=== PATIENT | female | born 1990 | race Caucasian/White ===

== ENCOUNTER 2018-05-18 19:01 | Outpatient (REF) | payer SELFPAY ==
[2018-05-18 20:12] LABS: Abs Immature Grans 0.03 k/cumm (0.0-0.09); Absolute Basophil Count 0.05 k/cumm (0.0-0.2); Absolute Eosinophil Count 0.12 k/cumm (0.0-0.7); Absolute Lymphocyte Count 2.13 k/cumm (1.2-3.4); Absolute Monocyte Count 0.52 k/cumm (0.11-0.7); Absolute Neutrophil Count 4.53 k/cumm (1.2-6.7); Basophils % 0.7; Eosinophils % 1.6; HCT 46.6 % (36.0-46.0); HGB 15.5 g/dL (12.0-15.5); Immature Grans % 0.4; Lymphocytes % 28.9; Mean Corp. HGB Concentration 33.3 g/dL (32.0-36.0); Mean Corpuscular Hemoglobin 32.9 pg (27.0-33.0); Mean Corpuscular Volume 98.9 fL (80-95); Mean Platelet Volume 11.7 fL (8.0-11.0); Neutrophils % 61.4; Platelet Count 255 x1000/uL (130-400); RBC 4.71 m/cumm (4.00-5.20); RBC Distribution Width 13.2 % (11.7-14.6); White Blood Cell Count 7.38 k/cumm (4.4-10.8)
[2018-05-18 20:18] LABS: Mono Screening Negative (Negative)
[2018-05-18 20:51] LABS: ALT 38 U/L (12-78); AST 25 U/L (15-37); Albumin 3.4 g/dL (3.4-5.0); Alkaline Phosphatase 103 U/L (46-116); BUN 9 mg/dL (7-18); Bilirubin, Total 0.5 mg/dL (0.2-1.0); CREATININE 0.71 mg/dL (0.55-1.02); Calcium 8.9 mg/dL (8.5-10.1); Chloride 106 mmol/L (98-107); Glucose 110 mg/dL (70-100); Potassium 4.1 mmol/L (3.5-5.1); Sodium 142 mmol/L (136-145); Total Protein 6.6 g/dL (6.4-8.2)
== END 2018-05-18 19:21 ==
LOC: NCHCN 19:01
PROVIDERS: PCP Nurse Practitioner; Visit Provider Nurse Practitioner Family
DX: R10.12 Left upper quadrant pain (principal)
CPT/HCPCS: 80053; 85025; 86308

== ENCOUNTER 2018-06-07 11:58 | Emergency (ER) | payer SELFPAY ==
[2018-06-07 12:20] VITALS: BP 135/77; PULSE 89; RESP 16; TEMP 36.6; O2SAT 99
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
[2018-06-07] MEDS: Acetaminophen 500 MG TAB 1000 MG PO (13:55)
--- NOTE | 2018-06-07 14:13 | DI.RAD_ITS ---
SYMPTOMS/DIAGNOSIS: LATERAL MALLEOLUS INJURY LEFT ANKLE: Three views. No acute fracture or dislocation is identified. The soft tissues are unremarkable. No radiopaque foreign bodies are seen in the soft tissues. IMPRESSION: Negative examination.
== END 2018-06-07 15:00 | disposition home or self-care (01) ==
PROVIDERS: Emergency Provider Physician Assistant; PCP Nurse Practitioner Family
DX: S93.402A Sprain of unspecified ligament of left ankle, initial encounter (principal); W10.1XXA Fall (on)(from) sidewalk curb, initial encounter; X50.9XXA Other and unspecified overexertion or strenuous movements or postures, initial encounter
CPT/HCPCS: 29515; 99283; 73610; L3650

== ENCOUNTER 2019-01-02 10:51 | Emergency (ER) | payer SELFPAY ==
[2019-01-02 11:12] VITALS: BP 117/73; PULSE 102; RESP 18; TEMP 36.5; O2SAT 100
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
== END 2019-01-02 11:58 | disposition home or self-care (01) ==
LOC: ER 11:58
PROVIDERS: Emergency Provider Student in an Organized Health Care Education/Training Program; PCP Nurse Practitioner Family
DX: S80.00XA Contusion of unspecified knee, initial encounter (principal); S70.10XA Contusion of unspecified thigh, initial encounter; S40.029A Contusion of unspecified upper arm, initial encounter; Y04.0XXA Assault by unarmed brawl or fight, initial encounter; F10.10 Alcohol abuse, uncomplicated
CPT/HCPCS: 99282

== ENCOUNTER 2019-03-03 10:40 | Outpatient (CLI) | payer MEDICAID, SELFPAY ==
[2019-03-03 11:36] LABS: Abs Immature Grans 0.03 k/cumm (0.0-0.09); Absolute Basophil Count 0.02 k/cumm (0.0-0.2); Absolute Eosinophil Count 0.07 k/cumm (0.0-0.7); Absolute Lymphocyte Count 1.37 k/cumm (1.2-3.4); Absolute Neutrophil Count 5.08 k/cumm (1.2-6.7); Basophils % 0.3; HCT 39.9 % (36.0-46.0); HGB 13.8 g/dL (12.0-15.5); Immature Grans % 0.4; Lymphocytes % 19.9; Mean Corp. HGB Concentration 34.6 g/dL (32.0-36.0); Mean Corpuscular Hemoglobin 33.5 pg (27.0-33.0); Mean Corpuscular Volume 96.8 fL (80-95); Mean Platelet Volume 11.2 fL (8.0-11.0); Monocytes % 4.4; Platelet Count 215 x1000/uL (130-400); RBC 4.12 m/cumm (4.00-5.20); RBC Distribution Width 12.1 % (11.7-14.6); White Blood Cell Count 6.87 k/cumm (4.4-10.8)
[2019-03-03 12:30] LABS: TSH (W/Ref FT4) 3.05 uIU/mL (0.36-3.74)
[2019-03-04 09:21] LABS: Hepatitis B Surface Ag Negative (NEGAT)
[2019-03-04 09:45] LABS: HIV-1/2 Ag & Ab Screen Negative (NEGAT); Hepatitis C Ab w Rflx HCV PCR Negative (NEGAT)
[2019-03-04 10:50] LABS: Varicella IgG Antibody Positive
[2019-03-04 10:53] LABS: Syphilis Serology (RPR) Negative (Negative)
[2019-03-04 10:55] LABS: Rubella IgG Ab (UVM) Positive
== END 2019-03-03 11:00 ==
PROVIDERS: PCP Nurse Practitioner Family; Visit Provider Advanced Practice Midwife
DX: Z34.91 Encounter for supervision of normal pregnancy, unspecified, first trimester (principal); Z11.59 Encounter for screening for other viral diseases; Z01.84 Encounter for antibody response examination; Z11.4 Encounter for screening for human immunodeficiency virus [HIV]
CPT/HCPCS: 36415; 80055; 86787; 86803; 86850; 86900; 86901; 87340; 87389; 84443; 86592; 86762

== ENCOUNTER 2019-03-03 13:38 | Outpatient (REF) | payer MEDICAID, SELFPAY ==
[2019-03-04 14:18] LABS: Chlamydia Result Negative; GC Result Negative
== END 2019-03-03 13:58 ==
LOC: LBN 13:38
PROVIDERS: PCP Nurse Practitioner Family; Visit Provider Advanced Practice Midwife
DX: Z34.90 Encounter for supervision of normal pregnancy, unspecified, unspecified trimester (principal); Z11.3 Encounter for screening for infections with a predominantly sexual mode of transmission
CPT/HCPCS: 80307; 87491; 87591; 87086; 87480; 87510; 87660

== ENCOUNTER 2019-03-21 11:26 | Outpatient (CLI) | payer MEDICAID, SELFPAY ==
[2019-03-21 14:52] LABS: Kit/Specimen SENT
== END 2019-03-21 11:46 ==
PROVIDERS: PCP Nurse Practitioner Family; Visit Provider Advanced Practice Midwife
DX: Z34.01 Encounter for supervision of normal first pregnancy, first trimester (principal)
CPT/HCPCS: 36415

== ENCOUNTER 2019-05-02 00:31 | Outpatient (CLI) | payer MEDICAID, SELFPAY ==
--- NOTE | 2019-05-02 09:57 | DI.US_ITS ---
EXAM: US OB 2-3 TRIMESTER CLINICAL HISTORY: Z34.90 SUPERVISION NORMAL . TECHNIQUE: Ultrasound performed using standard protocol. FINDINGS: Fetus demonstrated in varied position. The amniotic fluid index is normal. The measurements ar e consistent with a gestational age of 17 weeks 2 days. A fundal and posterior placenta is identifie d. The spine and head are poorly seen. Patient is to return on 05/11/2019 for completion of the exami nation. IMPRESSION: Please see the ultrasound worksheet for the complete results of this study.
== END 2019-05-02 00:51 ==
PROVIDERS: PCP Nurse Practitioner Family; Visit Provider Advanced Practice Midwife
DX: Z34.92 Encounter for supervision of normal pregnancy, unspecified, second trimester (principal)
CPT/HCPCS: 76805

== ENCOUNTER 2019-05-11 01:10 | Outpatient (CLI) | payer MEDICAID, SELFPAY ==
--- NOTE | 2019-05-11 15:32 | DI.US_ITS ---
EXAM: US OB F/U FACIAL/LVOT/RVOT CLINICAL HISTORY: FU HEART TO COMPLETE SURVEY. TECHNIQUE: Ultrasound performed using standard protocol. COMPARISON: No exams were available for comparison FINDINGS: Second trimester repeat scanning was performed due to incomplete evaluation of spine. On today's exam ination, again the spinal structures are non visualized due to position. An additional attempt at scanning spine may be obtained if desired.
== END 2019-05-11 01:30 ==
PROVIDERS: PCP Nurse Practitioner Family; Visit Provider Advanced Practice Midwife
DX: Z34.92 Encounter for supervision of normal pregnancy, unspecified, second trimester (principal); Z36.2 Encounter for other antenatal screening follow-up
CPT/HCPCS: 76815

== ENCOUNTER 2019-05-23 09:59 | Outpatient (CLI) | payer MEDICAID, SELFPAY ==
[2019-05-23 10:33] LABS: Glucose,1 Hr (Glucola) 113 mg/dL (80-140)
== END 2019-05-23 10:19 ==
PROVIDERS: PCP Nurse Practitioner Family; Visit Provider Advanced Practice Midwife
DX: Z34.92 Encounter for supervision of normal pregnancy, unspecified, second trimester (principal)
CPT/HCPCS: 36415; 82950

== ENCOUNTER 2019-07-05 16:12 | Outpatient (REF) | payer MEDICAID, SELFPAY | END 2019-07-05 16:32 | LOC: LBO 16:12 | PROVIDERS: PCP Nurse Practitioner Family; Visit Provider Advanced Practice Midwife | DX: Z87.440 Personal history of urinary (tract) infections (principal); R82.90 Unspecified abnormal findings in urine | CPT/HCPCS: 87086 ==

== ENCOUNTER 2019-07-19 08:36 | Outpatient (CLI) | payer MEDICAID, SELFPAY ==
[2019-07-19 09:47] LABS: HCT 36.3 % (36.0-46.0); HGB 12.2 g/dL (12.0-15.5); Mean Corp. HGB Concentration 33.6 g/dL (32.0-36.0); Mean Corpuscular Hemoglobin 32.5 pg (27.0-33.0); Mean Corpuscular Volume 96.8 fL (80-95); Mean Platelet Volume 10.6 fL (8.0-11.0); Platelet Count 227 x1000/uL (130-400); RBC 3.75 m/cumm (4.00-5.20); RBC Distribution Width 12.8 % (11.7-14.6)
[2019-07-19 10:33] LABS: Glucose,1 Hr (Glucola) 139 mg/dL (80-140)
== END 2019-07-19 08:56 ==
PROVIDERS: PCP Nurse Practitioner Family; Visit Provider Advanced Practice Midwife
DX: Z34.93 Encounter for supervision of normal pregnancy, unspecified, third trimester (principal)
CPT/HCPCS: 36415; 82950; 85027

== ENCOUNTER 2019-07-25 08:51 | Outpatient (CLI) | payer MEDICAID, SELFPAY ==
[2019-07-25 11:09] LABS: Glucose 1 Hour 181 mg/dL
[2019-07-25 12:57] LABS: Glucose 3 Hour 59 mg/dL
== END 2019-07-25 09:11 ==
PROVIDERS: Advanced Practice Midwife; PCP Nurse Practitioner Family; Visit Provider Advanced Practice Midwife
DX: Z34.93 Encounter for supervision of normal pregnancy, unspecified, third trimester (principal)
CPT/HCPCS: 36410; 82951

== ENCOUNTER 2019-08-04 10:06 | Outpatient (CLI) | payer MEDICAID, SELFPAY ==
--- NOTE | 2019-08-04 16:00 | NS.NUTBLAN_ITS ---
DESCRIPTION: Halie Zarate presents for nutrition consult for management of gestational diabetes. She has a strong family history in mom and dad. This is her first with a net 0 weight gain after weight loss in early . FOOD: Halie has oatmeal or muffin for breakfast; brings snacks to eat of oatbar or gummy snacks; sometimes eats a sandwich at work ([employer]); often has cereal and milk for supper. Often drinks a pint of milk daily. States she often forgets her vitamin. MONITORING: She has been monitoring her blood sugars as directed fasting and one hour after she eats. States all of her numbers have been less than 100. She did not bring her glucometer with her. PHYSICAL ACTIVITY: She is active at work only. INTERVENTION: Reviewed gestational food guide for carbohydrate identification, portions, distribution. Given that she is monitoring her blood sugars with normal results, encouraged her to continue what she is doing with an emphasis on assuring some vegetables and complete protein in at least 2 meals a day. Reviewed basic guidlines for gestational diabetes as well as risk factors. PLAN: She will call with blood sugars out of range. She will continue to follow the protocol being mindful of carbohydrate quality and quantity.
== END 2019-08-04 10:26 ==
PROVIDERS: PCP Nurse Practitioner Family; Visit Provider Dietitian, Registered
DX: O24.419 Gestational diabetes mellitus in pregnancy, unspecified control (principal); Z83.3 Family history of diabetes mellitus; Z71.3 Dietary counseling and surveillance
CPT/HCPCS: 97802

== ENCOUNTER 2019-08-29 00:39 | Outpatient (CLI) | payer MEDICAID, SELFPAY ==
--- NOTE | 2019-08-29 07:03 | DI.US_ITS ---
EXAM: US OB ORALIA WEIGHT CLINICAL HISTORY: size greater than dates, gestational diabetes, TECHNIQUE: Ultrasound performed using standard protocol. COMPARISON: US OB F/U FACIAL/LVOT/RVOT from 05/11/2019 FINDINGS: Ob ultrasound was performed utilizing limited 3rd trimester protocol. biometry is consistent w ith gestational age of 35 weeks 0 days and EDC of 10/03/2019. Estimated weight is 2511 grams which is at the 63rd percentile for predicted gestational age. Placenta is posterior with no evidence of placenta previa. There is visually a normal quantity of am niotic fluid and the ORALIA is 20. Fetus is in cephalic presentation, cardiac activity noted at a rate of 133 BPM.
== END 2019-08-29 00:59 ==
PROVIDERS: PCP Nurse Practitioner Family; Visit Provider Advanced Practice Midwife
DX: O24.419 Gestational diabetes mellitus in pregnancy, unspecified control (principal); O26.843 Uterine size-date discrepancy, third trimester
CPT/HCPCS: 76816

== ENCOUNTER 2019-09-10 18:14 | Inpatient (IN) | payer MEDICAID, SELFPAY ==
[2019-09-10 19:23] LABS: HCT 36.8 % (36.0-46.0); HGB 12.7 g/dL (12.0-15.5); Mean Corp. HGB Concentration 34.5 g/dL (32.0-36.0); Mean Corpuscular Hemoglobin 32.9 pg (27.0-33.0); Mean Corpuscular Volume 95.3 fL (80-95); Mean Platelet Volume 10.8 fL (8.0-11.0); Platelet Count 233 x1000/uL (130-400); RBC 3.86 m/cumm (4.00-5.20); RBC Distribution Width 12.5 % (11.7-14.6); White Blood Cell Count 14.53 k/cumm (4.4-10.8)
[2019-09-10] MEDS: Penicillin G POT. 5,000,000 UNITS in Normal Saline 100 ML 200 UNITS IVPB (19:40)
[2019-09-10] MEDS: Citalopram 20 MG TAB PO (21:47)
[2019-09-11] MEDS: Acetaminophen 325 MG TAB 650 MG PO (15:34)
[2019-09-11] MEDS: Citalopram 20 MG TAB PO (22:11)
[2019-09-12 06:42] LABS: HCT 37.7 % (36.0-46.0); HGB 12.6 g/dL (12.0-15.5); Mean Corp. HGB Concentration 33.4 g/dL (32.0-36.0); Mean Corpuscular Hemoglobin 32.4 pg (27.0-33.0); Mean Corpuscular Volume 96.9 fL (80-95); Mean Platelet Volume 10.3 fL (8.0-11.0); Platelet Count 233 x1000/uL (130-400); RBC 3.89 m/cumm (4.00-5.20); RBC Distribution Width 12.8 % (11.7-14.6); White Blood Cell Count 11.25 k/cumm (4.4-10.8)
== END 2019-09-13 12:30 | disposition home or self-care (01) | DRG 807 ==
PROVIDERS: Admitting Provider Advanced Practice Midwife; PCP Nurse Practitioner Family; Visit Provider Advanced Practice Midwife
DX: O60.14X0 Preterm labor third trimester with preterm delivery third trimester, not applicable or unspecified (principal); Z37.0 Single live birth; Z3A.35 35 weeks gestation of pregnancy; O70.0 First degree perineal laceration during delivery; O24.420 Gestational diabetes mellitus in childbirth, diet controlled; O99.824 Streptococcus B carrier state complicating childbirth; O99.344 Other mental disorders complicating childbirth; O99.334 Smoking (tobacco) complicating childbirth; F41.9 Anxiety disorder, unspecified; Z79.82 Long term (current) use of aspirin; F17.210 Nicotine dependence, cigarettes, uncomplicated
CPT/HCPCS: 36415; 85027; 86850; 86900; 86901; 59025; 87081; G0378; J2540; J3490

== ENCOUNTER 2020-03-03 13:45 | Emergency (ER) | payer MEDICAID, SELFPAY ==
[2020-03-03 14:14] VITALS: BP 120/67; PULSE 87; RESP 16; TEMP 36.8; O2SAT 98
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
[2020-03-03] MEDS: Ibuprofen 400 MG TAB PO (16:16)
[2020-03-03] MEDS: Cephalexin 500 MG CAP PO (16:16)
[2020-03-03 16:50] VITALS: BP 116/80; PULSE 80; RESP 16; TEMP 36.8; O2SAT 98
== END 2020-03-03 16:54 | disposition home or self-care (01) ==
PROVIDERS: Emergency Provider Registered Nurse Emergency; PCP Nurse Practitioner
DX: L02.31 Cutaneous abscess of buttock (principal)
CPT/HCPCS: 10060; 87070; 87205

== ENCOUNTER 2020-05-21 22:39 | Outpatient (REF) | payer MEDICAID, SELFPAY ==
[2020-05-21 19:54] LABS: Hemoglobin A1C 5.5 % (<5.7)
== END 2020-05-21 22:59 ==
LOC: NCHCN 22:39
PROVIDERS: PCP Nurse Practitioner; Visit Provider Family Medicine
DX: Z86.32 Personal history of gestational diabetes (principal)
CPT/HCPCS: 83036

== ENCOUNTER 2020-08-13 18:09 | Outpatient (REF) | payer MEDICAID, SELFPAY ==
[2020-08-14 21:31] LABS: COVID-19 RT-PCR Result NEGATIVE (Negative)
== END 2020-08-13 18:29 ==
LOC: NCHCN 18:09
PROVIDERS: PCP Nurse Practitioner; Visit Provider Nurse Practitioner Family
DX: R53.83 Other fatigue (principal)
CPT/HCPCS: U0003

== ENCOUNTER 2020-10-03 11:11 | Outpatient (REF) | payer MEDICAID, SELFPAY ==
--- NOTE | 2020-10-03 09:45 | PAPFT_PTH ---
PATIENT: Halie Zarate LOC: [facility] U#:[id number] AGE/SX: 30/F ROOM: RE10/03/[address]: Michaela Simms : 1990 BED: DIS: 10/03/2020 SPEC #: [id number] RECD: 10/03/20 18:03 STATUS: SWATI REShant #: [id number] KAIT: 10/03/20 09:[address]: Michaela Simms DEPT: [facility] Cytology RECD BY: Tiffany Ag Tissues: 1 - CX/ENDOCX FOR PAP SMEARS Procedures: PAP THIN PREP/UVM Screening Comments: [id number]
== END 2020-10-03 11:12 | disposition home or self-care (01) ==
LOC: NCHCN 11:11
PROVIDERS: PCP Nurse Practitioner; Visit Provider Nurse Practitioner
DX: Z12.4 Encounter for screening for malignant neoplasm of cervix (principal)
CPT/HCPCS: 88142

== ENCOUNTER 2021-04-09 15:18 | Outpatient (REF) | payer MEDICAID, SELFPAY ==
[2021-04-10 13:56] LABS: COVID-19 RT-PCR UVMMC Result Negative (Negative)
== END 2021-04-09 15:19 | disposition home or self-care (01) ==
LOC: LBN 15:18
PROVIDERS: PCP Nurse Practitioner; Visit Provider Family Medicine
DX: Z20.822 Contact with and (suspected) exposure to COVID-19 (principal); J06.9 Acute upper respiratory infection, unspecified
CPT/HCPCS: U0003

== ENCOUNTER 2021-04-12 19:54 | Outpatient (REF) | payer MEDICAID, SELFPAY ==
[2021-04-20 15:23] LABS: Chlamydia Result Negative (Negative); GC Result Negative (Negative)
== END 2021-04-12 19:55 | disposition home or self-care (01) ==
LOC: NCHCN 19:54
PROVIDERS: PCP Nurse Practitioner; Visit Provider Family Medicine
DX: N89.8 Other specified noninflammatory disorders of vagina (principal)
CPT/HCPCS: 87491; 87591

== ENCOUNTER 2021-05-25 10:37 | Outpatient (REF) | payer MEDICAID, SELFPAY ==
[2021-05-27 12:56] LABS: COVID-19 RT-PCR UVMMC Result Negative (Negative)
== END 2021-05-25 10:38 | disposition home or self-care (01) ==
LOC: LBN 10:37
PROVIDERS: PCP Nurse Practitioner; Visit Provider Physician Assistant Medical
DX: Z20.822 Contact with and (suspected) exposure to COVID-19 (principal); J06.9 Acute upper respiratory infection, unspecified
CPT/HCPCS: U0003

== ENCOUNTER 2021-06-21 14:23 | Outpatient (REF) | payer MEDICAID, SELFPAY ==
--- OUTSIDE RECORDS SUMMARY | 2021-06-21 14:28 | XMS_ITS ---
:1990 Author Care Team Providers Name Role Phone DR. CORINE CHENG Primary Care Provider [phone] DR. CORINE CHENG Referring Provider [phone] Allergies Code Code System Name Reaction Severity Status Onset NKDA ? Medications Name Status Start Date Stop Date ? ? ammonium lactate 12 % topical cream Active ? Not available Apply 1 application twice a day by topical route as directed. citalopram 20 mg tablet Active ? Not avai lable Take 1 tablet every day by oral route. [place] 952 mg-1,347 mg topical powder in packet Active ? Not available Apply 1 packet twice a day by topical route. Proventil HFA 90 mcg/actuation aerosol inhaler Active ? Not available Inhale 2 puffs every 4 hours by inhalation route as needed. Problems Name Status Onset Date Source ? Body Mass Index 30+ - Obesity Active 03/08/2020 ? Anxiety Active 03/08/2020 ? Tobacco User Active 03/08/2020 ? Migraine Active 03/08/2020 ? Gastroesophageal Reflux Disease Active 03/08/2020 ? Gestational Diabetes Mellitus Active 03/08/2020 ? [place] - Lesion Active 03/08/2020 ? Abnormal Cervical Papanicolaou Smear Active 03/08/2020 ? Pain in Left Knee Active 03/08/2020 ? Procedures None recorded. Results Lab Results None recorded. Past Encounters 03/26/2020 [facility] Fuentes: [address] [place] [phone], Ph. 03/13/2020 Ingrowing Great Toenail [facility] Fuentes: [address] [place] [phone], Ph. 03/12/2020 Fissure in Skin Spencer Fuentes: [address] [place] [phone], Ph. Social History Tobacco Smoking Status Heavy Tobacco Smoker (1 pack per day) Vaccine List None recorded. Plan of Care Patient Instructions Perform soaks and dressings at home . Return PRN Use soaks as recommended Reminders Provider Appointments None recorded. ? ? Lab None recorded. ? ? Referral None recorded. ? ? Procedures None recorded. ? ? Surgeries None recorded. ? ? Imaging None recorded. ? ? Vitals 03/26/2020 01:00PM FOLLOW UP Height Weight BMI Blood Pressure 167.64 cm 104.33 kg 37.1 kg/m2 106/56 mm[Hg] 03/13/2020 02:15PM ACUTE Height Weight BMI Blood Pressure 167.64 cm 104.33 kg 37.1 kg/m2 122/60 mm[Hg] 03/12/2020 03:00PM NEW PATIENT Height Weight BMI Blood Pressure 167.64 cm 104.33 kg 37.1 kg/m2 122/60 mm[Hg]
[2021-06-22 15:10] LABS: COVID-19 RT-PCR UVMMC Result Negative (Negative)
--- OUTSIDE RECORDS SUMMARY | 2021-07-03 17:29 | XMS_ITS ---
:1990 Author Care Team Providers Name Role Phone DR. CORINE CHENG Primary Care Provider [phone] DR. CORINE CHENG Referring Provider [phone] Allergies Code Code System Name Reaction Severity [...] ? Gestational Diabetes Mellitus Active 03/08/2020 ? [place] - Lesion Active 03/08/2020 ? Abnormal Cervical Papanicolaou Smear Active 03/08/2020 ? Pain in Left Knee Active 03/08/2020 ? Procedures None recorded. Results Lab Results None recorded. Past Encounters 03/26/2020 [facility] Fuentes: [address] [place] [phone], Ph. 03/13/2020 Ingrowing Great Toenail [facility] Fuentes: [address] [place] [phone], Ph. 03/12/2020 Fissure in Skin Spencer Fuentes: [address] [place] [phone], Ph. Social History Tobacco Smoking Status Heavy [...]
== END 2021-06-21 14:24 | disposition home or self-care (01) ==
LOC: LBN 14:23
PROVIDERS: PCP Nurse Practitioner; Visit Provider Physician Assistant Medical
DX: Z20.822 Contact with and (suspected) exposure to COVID-19 (principal); J06.9 Acute upper respiratory infection, unspecified
CPT/HCPCS: U0003

== ENCOUNTER 2021-07-09 15:23 | Outpatient (REF) | payer MEDICAID, SELFPAY ==
[2021-07-09 16:44] LABS: Anion Gap 10.2 mmol/L (3-11); BUN 12 mg/dL (7-18); CO2 23.8 mmol/L (21.0-32.0); CREATININE 0.8 mg/dL (0.55-1.02); Chloride 105 mmol/L (98-107); Glucose 118 mg/dL (74-106); Potassium 3.6 mmol/L (3.5-5.1); Sodium 139 mmol/L (136-145)
== END 2021-07-09 15:24 | disposition home or self-care (01) ==
LOC: NCHCN 15:23
PROVIDERS: PCP Nurse Practitioner; Visit Provider Nurse Practitioner
DX: R10.84 Generalized abdominal pain (principal)
CPT/HCPCS: 80048

== ENCOUNTER 2021-08-07 00:11 | Outpatient (CLI) | payer MEDICAID, SELFPAY ==
--- NOTE | 2021-08-07 10:00 | DI.CT_ITS ---
Exam(s) CT ABDOMEN PELVIS W EXAM: CT ABDOMEN PELVIS W CLINICAL HISTORY: ABDOMINAL PAIN, R10.9. TECHNIQUE: Imaging Protocol: Axial computed tomography images with coronal and sagittal reformatted images were created and reviewed CONTRAST MATERIAL: Intravenous: Omnipaque 100cc Oral: Yes. COMPARISON: No exams were available for comparison FINDINGS: VISUALIZED LUNG BASES: No nodules nor pleural effusions evident. ABDOMEN: There is no ascites. LIVER: There are no focal hepatic lesions evident. No dilatation of intrahepatic ducts. GALLBLADDER/BILIARY: The gallbladder is surgically absent. CBD is not dilated. PANCREAS: No evidence of pancreatic mass nor dilatation of the pancreatic duct. SPLEEN: Spleen is not enlarged. No obvious intrasplenic lesions. Splenic and portal veins are paten t. ADRENALS: There are no significant adrenal masses. KIDNEYS:No cysts evident. No solid renal masses. No calculi nor hydronephrosis.. ABDOMINAL AORTA: Abdominal aorta is not enlarged. LYMPH NODES:There is no retroperitoneal nor paraaortic adenopathy. ABDOMINAL WALL: Anterior abdominal wall fat containing umbilical hernia. GI: There is no evidence of bowel obstruction, free air, nor abscess. PELVIS: GI: No evidence of appendicitis.No evidence of sigmoid diverticulitis. LYMPH NODES: There is no intrapelvic nor inguinal adenopathy. REPRODUCTIVE: Uterus appears unremarkable. Left adnexa unremarkable. Right ovary is slightly larger t valdez the left and measures 3.3 by 2.7 cm by 4.5 cm and contains small cysts. URINARY BLADDER: No calculi nor obvious masses evident OSSEOUS: No significant osseous lesions. IMPRESSION: 1. The gallbladder surgically absent. The biliary tree is not dilated. 2. Slight asymmetry in the appearance of the ovaries, right ovary larger than the left although still upper normal limits for this age group. The right ovary contains multiple small follicular cysts. Th ere are no extraovarian adnexal masses and no free fluid in the pelvis. 3. There is anterior abdominal wall fat only containing umbilical hernia. There is no bowel obstructi on. 4. There is no ascites. RADIATION DOSE DELIVERED: 1,139.74mGy.cm Total DLP DATA REPOSITORY: All CT scans at this facility are submitted to the National Radiology Data Registry (NRDR) Dose Index Registry (DIR) with the [employer] (ACR). RADIATION OPTIMIZATION: All CT scans at this facility use at least one of these dose optimization te chniques: automated exposure control; mA and/or kV adjustment per patient size (includes targeted exa ms where dose is matched to clinical indication); or iterative reconstruction.
[2021-08-07] MEDS: Omnipaque 350 MG/ML 100 ML BTL IJ (14:10)
[2021-08-07] MEDS: Normal Saline Flush 10 ML SYR IVP (14:16)
== END 2021-08-07 00:31 ==
PROVIDERS: PCP Nurse Practitioner; Visit Provider Nurse Practitioner
DX: R10.9 Unspecified abdominal pain (principal); N83.01 Follicular cyst of right ovary; K42.9 Umbilical hernia without obstruction or gangrene
CPT/HCPCS: 74177; J3490

== ENCOUNTER 2021-10-23 10:19 | Emergency (ER) | payer MEDICAID, SELFPAY ==
[2021-10-23 10:26] VITALS: BP 126/73; PULSE 88; RESP 17; TEMP 36.8; O2SAT 100
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
[2021-10-23] MEDS: Lactated Ringers 1,000 ML 1000 ML IV (10:55)
[2021-10-23 10:59] LABS: Abs Immature Grans 0.01 10^3/uL (0.0-0.06); Absolute Basophil Count 0.05 10^3/uL (0.0-0.2); Absolute Eosinophil Count 0.07 10^3/uL (0.0-0.7); Absolute Lymphocyte Count 1.74 10^3/uL (1.2-3.4); Absolute Monocyte Count 0.46 10^3/uL (0.1-0.8); Eosinophils % 1.4; HCT 43.1 % (36.0-46.0); HGB 14.6 g/dL (11.2-15.7); Immature Grans % 0.2; MCH 30.4 pg (27.0-33.0); MCHC 33.9 % (32.0-36.0); MCV 89.8 fL (80-95); MPV 10.3 fL (8.0-11.0); Monocytes % 9.5; Neutrophils % 51.9; Nucleated RBC 0 %; Platelet Count 242 10^3/uL (130-400); RDW 11.9 % (11.7-14.6); RDW-SD 39.2 fL; WBC 4.83 10^3/uL (4.4-10.8)
[2021-10-23 11:10] LABS: Lipase 57 U/L (73-393)
[2021-10-23 11:15] LABS: ALT 60 U/L (14-59); AST 45 U/L (15-37); Albumin 4.3 g/dL (3.4-5.0); Alkaline Phosphatase 105 U/L (46-116); Anion Gap 9.6 mmol/L (3-11); BUN 9 mg/dL (7-18); CO2 25.4 mmol/L (21.0-32.0); CREATININE 0.8 mg/dL (0.55-1.02); Calcium 9.1 mg/dL (8.5-10.1); Chloride 104 mmol/L (98-107); Glucose 107 mg/dL (74-106); Magnesium 2.2 mg/dL (1.8-2.4); Potassium 3.7 mmol/L (3.5-5.1); Sodium 139 mmol/L (136-145); Total Protein 8.1 g/dL (6.4-8.2)
[2021-10-23] MEDS: Ondansetron 4 MG/2 ML VIAL IVP (11:17)
[2021-10-23 11:23] LABS: HCG Qual (Serum) Negative
[2021-10-23 11:41] LABS: Bilirubin Negative (Negative); Blood Negative (Negative); Clarity Clear (Clear); Glucose Negative (Negative); Ketones Negative (Negative); Leukocyte Esterase Negative (Negative); Nitrite Negative (Negative); Urobilinogen 0.2 EU/dL (Up TO 0.2); pH 6.5 (5-8)
--- NOTE | 2021-10-23 12:22 | NUR.NOTE ---
Nursing Note: Pt ambulatory to [facility], stool sample obtained & sent to lab, possible contanimation w/urine, outpt lab slip & supplies given to obtain stool sample if diarrhea cont. at home. Pt verbalized understanding instructions.
[2021-10-23 13:38] LABS: C Diff PCR Negative (Negative)
[2021-10-24 11:28] LABS: Campylobacter PCR Negative (Negative); Salmonella PCR Negative (Negative); Shiga Toxin PCR Negative (Negative); Shigella/Enteroinvasive Ecoli Negative (Negative)
== END 2021-10-23 12:27 | disposition home or self-care (01) ==
PROVIDERS: Emergency Provider Physician Assistant; PCP Nurse Practitioner
DX: R19.7 Diarrhea, unspecified (principal); R11.0 Nausea
CPT/HCPCS: 36415; 80053; 83690; 87493; 87505; 96361; 96374; 99284; 81003; 83735; 84703; 85025; 99283; J2405

== ENCOUNTER 2021-10-23 14:47 | Outpatient (REF) | payer MEDICAID, SELFPAY ==
[2021-10-23 19:31] LABS: C Diff PCR Negative (Negative)
== END 2021-10-23 14:48 | disposition home or self-care (01) ==
LOC: LBN 14:47
PROVIDERS: PCP Nurse Practitioner; Visit Provider Nurse Practitioner
DX: R19.7 Diarrhea, unspecified (principal)
CPT/HCPCS: 87493; 87505

== ENCOUNTER 2021-11-28 10:11 | Outpatient (REF) | payer MEDICAID, SELFPAY ==
[2021-11-28 16:42] LABS: ALT 24 U/L (14-59); AST 18 U/L (15-37); Albumin 3.9 g/dL (3.4-5.0); Alkaline Phosphatase 94 U/L (46-116); Anion Gap 6.2 mmol/L (3-11); BUN 10 mg/dL (7-18); Bilirubin, Total 1.3 mg/dL (0.2-1.0); CO2 26.8 mmol/L (21.0-32.0); CREATININE 0.8 mg/dL (0.55-1.02); Calcium 8.8 mg/dL (8.5-10.1); Chloride 105 mmol/L (98-107); Glucose 108 mg/dL (74-106); Potassium 4.2 mmol/L (3.5-5.1); Sodium 138 mmol/L (136-145); TSH (W/Ref FT4) 1.71 uIU/mL (0.36-3.74); Total Protein 6.8 g/dL (6.4-8.2)
== END 2021-11-28 10:12 | disposition home or self-care (01) ==
LOC: NCHCN 10:11
PROVIDERS: PCP Nurse Practitioner; Visit Provider Nurse Practitioner Family
DX: F41.9 Anxiety disorder, unspecified (principal); R10.9 Unspecified abdominal pain
CPT/HCPCS: 80053; 84443

== ENCOUNTER 2022-02-04 18:24 | Outpatient (REF) | payer MEDICAID, SELFPAY ==
[2022-02-04 22:01] LABS: ALT 24 U/L (14-59); AST 21 U/L (15-37); Alkaline Phosphatase 99 U/L (46-116); BUN 11 mg/dL (7-18); Bilirubin, Total 0.6 mg/dL (0.2-1.0); CREATININE 0.8 mg/dL (0.55-1.02); Calcium 8.7 mg/dL (8.5-10.1); Chloride 105 mmol/L (98-107); Glucose 101 mg/dL (74-106); Potassium 4.1 mmol/L (3.5-5.1); Sodium 138 mmol/L (136-145); Total Protein 7.2 g/dL (6.4-8.2)
== END 2022-02-04 18:25 | disposition home or self-care (01) ==
LOC: LBN 18:24
PROVIDERS: PCP Nurse Practitioner Family; Visit Provider Nurse Practitioner Family
DX: U07.1 COVID-19 (principal)
CPT/HCPCS: 80053

== ENCOUNTER 2022-04-18 11:23 | Emergency (ER) | payer MEDICAID, SELFPAY ==
[2022-04-18 11:33] VITALS: BP 123/68; PULSE 109; RESP 18; TEMP 37.3; O2SAT 100
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
[2022-04-18 11:59] LABS: Source Nasal/Nares
[2022-04-18 12:01] VITALS: RESP 18
[2022-04-18] MEDS: Ondansetron O.D.T. 4 MG TABEF PO (12:01)
[2022-04-18] MEDS: Acetaminophen 500 MG TAB PO (12:01)
[2022-04-18 12:48] LABS: COVID-19 PCR Negative (Negative)
== END 2022-04-18 13:11 | disposition home or self-care (01) ==
PROVIDERS: Emergency Provider Registered Nurse Emergency; PCP Nurse Practitioner Family
DX: J02.8 Acute pharyngitis due to other specified organisms (principal); Z20.822 Contact with and (suspected) exposure to COVID-19; F17.290 Nicotine dependence, other tobacco product, uncomplicated
CPT/HCPCS: 87635; 87880; 99283; 87081; 99284

== ENCOUNTER 2022-05-05 17:33 | Outpatient (REF) | payer MEDICAID, SELFPAY ==
[2022-05-05 19:30] LABS: Bilirubin Negative (Negative); Blood Negative (Negative); Clarity Clear (Clear); Glucose Negative (Negative); Ketones Trace mg/dL (Negative); Leukocyte Esterase Negative (Negative); Nitrite Negative (Negative); Specific Gravity 1.025 (1.005-1.025); Urobilinogen 0.2 EU/dL (Up TO 0.2)
[2022-05-05 19:34] LABS: Abs Immature Grans 0.02 10^3/uL (0.0-0.06); Absolute Basophil Count 0.05 10^3/uL (0.0-0.2); Absolute Lymphocyte Count 1.92 10^3/uL (1.2-3.4); Absolute Monocyte Count 0.59 10^3/uL (0.1-0.8); Absolute Neutrophil Count 5.29 10^3/uL (1.2-6.7); Basophils % 0.6; Eosinophils % 1.3; HCT 40.3 % (36.0-46.0); HGB 13.4 g/dL (11.2-15.7); Immature Grans % 0.3; Lymphocytes % 24.1; MCH 30.9 pg (27.0-33.0); MCHC 33.3 % (32.0-36.0); MCV 93 fL (80-95); MPV 11.1 fL (8.0-11.0); Monocytes % 7.4; Neutrophils % 66.3; Platelet Count 261 10^3/uL (130-400); RBC 4.33 10^6/uL (3.93-5.22); RDW-SD 41.2 fL; WBC 7.97 10^3/uL (4.4-10.8)
[2022-05-05 19:55] LABS: ALT 30 U/L (14-59); AST 22 U/L (15-37); Albumin 3.8 g/dL (3.4-5.0); Alkaline Phosphatase 92 U/L (46-116); Anion Gap 11.7 mmol/L (3-11); BUN 12 mg/dL (7-18); Bilirubin, Total 1.1 mg/dL (0.2-1.0); CO2 24.3 mmol/L (21.0-32.0); CREATININE 0.8 mg/dL (0.55-1.02); Calcium 9.5 mg/dL (8.5-10.1); Chloride 102 mmol/L (98-107); Estimated GFR 102.22 (mL/min/1.73m2); Glucose 100 mg/dL (74-106); Lipase 87 U/L (73-393); Potassium 3.7 mmol/L (3.5-5.1); Sodium 138 mmol/L (136-145); Total Protein 7.6 g/dL (6.4-8.2)
== END 2022-05-05 17:34 | disposition home or self-care (01) ==
LOC: NCHCN 17:33
PROVIDERS: PCP Nurse Practitioner Family; Visit Provider Family Medicine
DX: R30.0 Dysuria (principal); R10.31 Right lower quadrant pain
CPT/HCPCS: 80053; 83690; 87491; 87591; 81003; 84703; 85025; 87480; 87510; 87660

== ENCOUNTER 2022-05-20 12:18 | Emergency (ER) | payer MEDICAID, SELFPAY ==
[2022-05-20 12:23] VITALS: BP 152/72; PULSE 102; RESP 18; TEMP 36.4; O2SAT 99
--- NOTE | 2022-05-20 12:30 | DI.US_ITS ---
Exam(s) US ABDOMEN LIMITED EXAM: US ABDOMEN LIMITED CLINICAL HISTORY: RUQ pain TECHNIQUE: Ultrasound abdomen performed using standard protocol. COMPARISON: No exams were available for comparison FINDINGS: PANCREAS: Normal where visualized. LIVER: There is increased echogenicity of the liver consistent with fatty infiltration. Hepatopedal flow in the Portal Vein. The liver measures in 15.2 cm length. GALLBLADDER:Status post cholecystectomy. BILIARY SYSTEM: Common bile duct measures < 7 mm. No intrahepatic biliary ductal dilation. RIGHT KIDNEY: Kidney is normal in size. No evidence of renal calculi. No evidence of hydronephrosis. No renal mass or cyst identified. ASCITES: None seen. IMPRESSION: 1. Fatty infiltration of the liver. 2. Status post cholecystectomy. 3. Findings were discussed with the Tiffany Sanchez on 05/20/2022. DATA REPOSITORY:
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
== END 2022-05-20 14:26 | disposition home or self-care (01) ==
PROVIDERS: Emergency Provider Physician Assistant; PCP Nurse Practitioner Family
DX: K76.0 Fatty (change of) liver, not elsewhere classified (principal)
CPT/HCPCS: 80053; 83690; 99284; 76705; 85025

== ENCOUNTER 2022-05-27 15:02 | Outpatient (CLI) | payer MEDICAID, SELFPAY ==
--- NOTE | 2022-05-27 14:45 | DI.RAD_ITS ---
Exam(s) XR ANKLE RT COMPLETE EXAM: XR ANKLE RT COMPLETE CLINICAL HISTORY: f/u fx. TECHNIQUE: 2D digital imaging was performed of the right ankle. Three images were obtained. AP, la teral and oblique views were obtained. COMPARISON: CR XR ANKLE RT FA from 05/26/2022 CR XR ANKLE RT 2 VW FA from 05/26/2022 FINDINGS: BONES: There has been no change in alignment of the distal fibular and medial malleolar fractures com pared with the post reduction film from 05/26/2022. There also is a nondisplaced posterior malleolar fracture. No bony destructive lesion is seen. JOINTS: The ankle mortise is normally aligned. SOFT TISSUE: There is soft tissue swelling of the ankle. IMPRESSION: Stable fractures of the distal right fibula and tibia. DATA REPOSITORY: RADIATION DOSE DELIVERED:
== END 2022-05-27 15:03 | disposition home or self-care (01) ==
LOC: DIORS 15:02
PROVIDERS: PCP Nurse Practitioner Family; Referring Provider Nurse Practitioner Family; Visit Provider Student in an Organized Health Care Education/Training Program
DX: S82.831D Other fracture of upper and lower end of right fibula, subsequent encounter for closed fracture with routine healing (principal); X58.XXXD Exposure to other specified factors, subsequent encounter
CPT/HCPCS: 73610

== ENCOUNTER 2022-05-29 10:56 | Day surgery (SDC) | payer MEDICAID, SELFPAY ==
[2022-05-29] VITALS (9 sets, daily range): BP systolic 77–123; BP diastolic 53–85; PULSE 74–96; RESP 15–20; TEMP 36.2–36.9; O2SAT 94–99; BMI 40.3
--- NOTE | 2022-05-29 09:43 | ANES.PREOP_ITS ---
General Info Date of Service Date Performed: 05/29/22 Height: 5 ft 6 in Weight: 113.398 kg Body Mass Index (BMI): 40.3 Surgical Procedure: Operation Date: 05/29/22 13:25 Proposed Procedure Side Surgeon p Ankle ORIF and Syndesmosis Right Chicho Sim MD Meds Allergies and Home Medications Allergies Allergy/AdvReac Type Severity Reaction Status Date / Time No Known Allergies Allergy Verified 05/28/22 12:00 Home Medication Medication Instructions Recorded citalopram 20 mg tablet 20 mg PO HS 12/14/15 acetaminophen 500 mg tablet 500 mg PO Q6H PRN 06/07/21 (Tylenol Extra Strength) albuterol sulfate 90 mcg/actuation 2 puff inhalation BID PRN 06/07/21 aerosol inhaler (Proventil HFA) cetirizine 10 mg tablet 10 mg PO DAILY PRN 05/26/22 Current Visit Medications: Current Medications Generic Name Dose Route Start Last Admin Trade Name Freq PRN Reason Stop Dose Admin Ringer's Solution 1,000 mls @ 30 mls/hr 05/29/22 06:00 IV 06/27/22 23:59 INFUSION GILMA Cefazolin Sodium 3,000 mg/ 100 mls @ 200 mls/hr 05/29/22 06:00 Sodium Chloride IVPB 05/29/22 16:00 PREOP GILMA IV Miscellaneous Supplies 1 each 05/29/22 06:00 Iv Access IV 06/27/22 23:59 DIRECTED GILMA Oxycodone HCl 0 mg 05/29/22 07:22 Oxycodone 5 Mg Tab PO Q3H PRN PRN Pain Sodium Chloride 0 ml 05/29/22 06:00 Normal Saline Flush 10 Ml Syr IV 06/27/22 23:59 PRN PRN Sodium Chloride 0 ml 05/29/22 06:00 Normal Saline 10 Ml Vial IJ 06/27/22 23:59 DIRECTED PRN Sterile Water 0 ml 05/29/22 06:00 Water,Injection,Sterile 10 Ml Vial IJ 06/27/22 23:59 DIRECTED PRN PFSH Active Problems Active Problems: Problem Status Onset Code Smoker 12/07/13 F17.200 Migraine G43.909 Headache in O26.899, R51 Z34.90 History of recurrent UTIs Z87.440 Benign heart murmur R01.0 BMI 36.0-36.9,adult Z68.36 Anxiety F41.9 Migraine headache with aura G43.109 Migraine headache without aura G43.009 Gestational diabetes O24.419 Routine follow-up Z39.2 Oral contraception initiation Z30.011 Strep pharyngitis J02.0 Acute recurrent streptococcal tonsillitis J03.01 Vaginal discharge N89.8 Urinary frequency R35.0 Unspecified open wound of oral cavity, initial encounter S01.502A Shingles B02.9 Abscess, perianal K61.0 Preventative health care Z00.00 BMI 34.0-34.9,adult Z68.34 GERD (gastroesophageal reflux disease) K21.9 PMS (premenstrual syndrome) N94.3 Left acute serous otitis media H65.02 Chronic otitis media of left ear H66.92 Conductive hearing loss in left ear H90.12 Fatty liver K76.0 Abdominal pain R10.9 Trimalleolar fracture of ankle, closed 05/25/22 S82.853A Medical History Medical History 2 weeks follow-up Dental infection Depression Dislocation of right ankle joint Encounter for smoking cessation counseling History of abnormal cervical Pap smear LGSIL 2012, HPV neg, normal since Palpitations Per pt. states anxiety related TMJ (temporomandibular joint disorder) Tobacco use Medical History Comments:: Per pt. states her dad has delayed emergence Surgical History Surgical History History of tooth extraction History of wisdom tooth extraction Hx of cholecystectomy Tobacco Smoking/Tobacco Use Status: Current-Occasional Tobacco Type: e-cigarettes Alcohol Alcohol Intake: current Alcohol intake frequency: holidays/special occasions only Substance Use Substance use: Never Substance use type: does not use Prental History History 1 Para 0 Hx # Term Pregnancies 0 Multiple births Hx # Pregnancies 1 Ectopic pregnancies AB induced Hx Number of Living Children 0 AB spontaneous Past Pregnancies Del. Date GA/Weeks # Preg Succ Route Wgt Sex Labor Lgth Anesth esia Location Prov [facility] 09/10/19 35 No vaginal 2749.904 g Male 5 hrs 49 min Meghna Galicia CNM Vital Signs and Lab Results Vital Signs Most Recent Vital Signs in EMR: Temp Pulse Resp BP Pulse Ox 36.8 C 96 H 18 117/73 97 10/20/22 11:14 05/29/22 11:14 05/29/22 11:14 05/29/22 11:14 05/29/22 11:14 Lab Results Blood Type / Crossmatch: No Data to Display Complete Blood Count: White Blood Count 7.97 10^3/uL (4.4-10.8) 05/05/22 17:12 Red Blood Count 4.33 10^6/uL (3.93-5.22) 05/05/22 17:12 Hemoglobin 13.4 g/dL (11.2-15.7) 05/05/22 17:12 Hematocrit 40.3 % (36.0-46.0) 05/05/22 17:12 Platelet Count 261 10^3/uL (130-400) 05/05/22 17:12 Complete Metabolic Panel: Sodium 138 mmol/L (136-145) 05/05/22 17:12 Potassium 3.7 mmol/L (3.5-5.1) 05/05/22 17:12 Chloride 102 mmol/L (98-107) 05/05/22 17:12 Carbon Dioxide 24.3 mmol/L (21.0-32.0) 05/05/22 17:12 BUN 12 mg/dL (7-18) 05/05/22 17:12 Creatinine 0.8 mg/dL (0.55-1.02) 05/05/22 17:12 Est GFR (CKD-EPI 2020) 102.22 (mL/min/1.73m2) 05/05/22 17:12 Calcium 9.5 mg/dL (8.5-10.1) 05/05/22 17:12 Albumin 3.8 g/dL (3.4-5.0) 05/05/22 17:12 Glucose 100 mg/dL (74-106) 05/05/22 17:12 Liver Function Panel: Alanine Aminotransferase (ALT/SGPT) 30 U/L (14-59) 05/05/22 17: 12 Aspartate Amino Transf (AST/SGOT) 22 U/L (15-37) 05/05/22 17:12 Coagulation Panel: No Data to Display Cardiac Panel: No Data to Display Arterial Blood Gas: No Data to Display Venous Blood Gas: No Data to Display Pancreas Panel: Lipase 87 U/L (73-393) 05/05/22 17:12 Thyroid Panel: No Data to Display Infectious Disease: Neisseria gonorrhoeae DNA Probe TNP 05/05/22 17:12 Blood Cultures: No Data to Display Toxicology Panel: No Data to Display Panel: No Data to Display Anesthesia Assessment and Plan Anesthesia History Personal History: No History of Anesthesia Complications Family History: No Family History of Anesthesia Complications and Other Exercise Tolerance Exercise Tolerance: Metabolic Equivalents<4 Pertinent Negatives Pertinent Negatives: No Symptoms of GERD, No Major Cardiovascular Symptoms or Complaints, No Major Pulmonary Symptoms or Complaints and No History of CVA/TIA Cardiac & Pulmonary Exam Cardiac Exam: Normal S1/S2 Heart Sounds Pulmonary Exam: Clear Bilateral Breath Sounds Implantable Cardiac Device Does patient have a Pacemaker or an ICD?: No Airway Exam Known Difficult Airway: No Mallampati Class: 2 Mouth Opening: Normal (> 3cm) Thyromental Distance: Greater than 3 cm Neck Range of Motion: Full ROM Neck Circumference: Thick Teeth Condition: Normal Dentition ASA Classification ASA Score: ASA 3 Emergency Case?: No NPO Status NPO Status: NPO Clears >2 hours, Solids >8 hours Status Status: Negative HCG and Other (confirmed negative bedside urine dipstick.) Anesthesia Plan Resuscitation Status: Full Code Anesthesia Technique: General Anesthesia Airway Planned: Endotracheal Tube Pain Management: Surgeon and patient request nerve block Monitors Used: Standard Monitors Preoperative Comments:: 31 yo female for ankle ORIF. Sig PMHx: migraine, asthma (albuterol), anxiety/depression, smoker, fatty liver, TMJ, palpitations r/t anxiety. Discussed risk and benifits of regional anesthesia (adductor canal and pop/sci), specificly the risk of block failure and nerve injury (temproary and permenent). She wishes to proceed.
[2022-05-29] MEDS: Lactated Ringers 1,000 ML 30 ML IV (11:42)
--- NOTE | 2022-05-29 12:00 | DI.RAD_ITS ---
Exam(s) XR ANKLE RT COMPLETE EXAM: XR ANKLE RT COMPLETE CLINICAL HISTORY: fractured right ankle TECHNIQUE: 2D and realtime digital imaging was performed. COMPARISON: CR XR ANKLE RT COMPLETE from 05/27/2022 FINDINGS: C-arm fluoroscopy was utilized by Dr. Sim. Hard copies show plate and screw fixation of fracture o f the distal fibula with suture fixation of the tibiofibular joint. IMPRESSION: RADIATION DOSE DELIVERED: Uzmar= 1.25 1.25 mGy
[2022-05-29] MEDS: ceFAZolin 3,000 MG in Normal Saline 100 ML 200 MG IVPB (12:48)
--- NOTE | 2022-05-29 13:05 | W.ANESNERVE ---
Nerve Block Single Injection Procedure Date and Time Date Performed: 05/29/22 Procedure Start: 12:26 Location Where Procedure Performed Procedure Location: Day Surgery Unit Reason Performed: Postoperative Analgesia Requesting Provider: Chicho Sim Timeout Performed Timeout Performed: Yes Monitoring Used ECG, Blood Pressure and SpO2 Sterility Sterility: Hand Hygiene, Surgical Cap, Surgical Mask, Sterile Gloves and Chlorhexidine Sedation Given During Procedure Sedation Given (Indicate Dose Given): Versed IV Dose:: 3 mg Patient Mental Status Patient Mental Status: Sedate with meaningful communication Nerve Block 1st Nerve Block: Laterality: Right Block Type: Popliteal Sciatic Needle / Catheter Used: 100mm SonoPlex II Local Anesthetic Bolus (Indicate Dose Given): Lidocaine used for local infiltration of skin and Bupivacaine 0.375% Dose:: 25 mL Additives (Indicate Dose Given): Precedex Dose:: 41.6 mcg Ultrasound: Sterile probe cover and gel used Ultrasound Image Saved?: Yes Nerve Stimulator: Supplement to Ultrasound use and No twitch or parasthesia noted < 0.5 mA Paresthesia: None Procedure Tolerated: No Complications Procedure Outcome: Successful Procedure Comment: Prior to sedation electoral officer scanning was performed. Very challenging anatomy noted. Additional scanning performed, anatomy confirmed with 2nd provider. discussed block again with pt, the use of US and nerve stim, she is still willing to proceed. Discussed that we would stop the procedure at any point is she is uncomfortable or if we believed it was to difficult. Performed By: Beau Bradford 2nd Nerve Block: Laterality: Right Block Type: Adductor Canal Needle / Catheter Used: 100mm SonoPlex II Local Anesthetic Bolus (Indicate Dose Given): Lidocaine used for local infiltration of skin and Bupivacaine 0.25% Dose:: 8 mL Additives (Indicate Dose Given): Precedex Dose:: 9 mcg Ultrasound: Sterile probe cover and gel used Ultrasound Image Saved?: Yes Nerve Stimulator: Supplement to Ultrasound use and No twitch or parasthesia noted < 0.5 mA Paresthesia: None Procedure Tolerated: No Complications Procedure Outcome: Successful Performed By: Beau Bradford
[2022-05-29] MEDS: Bupivacaine 0.5% Pres-Free W/EPI 30 ML VIAL (13:12)
--- NOTE | 2022-05-29 14:00 | W.PM.OP ---
Operative Note Operative Note DATE OF PROCEDURE: 05/29/22 PRE-OP DIAGNOSIS: Right trimalleolar ankle fracture dislocation POST-OP DIAGNOSIS: same PROCEDURE: Right trimalleolar ankle fracture ORIF, CPT #01946 Open treatment syndesmosis disruption, CPT# 93553 SURGEON: Chicho Sim GOLF [employer] LABORER: Rhea Maldonado ANESTHESIA TYPE: Local By Surgeon, General LMA/ETT and Primary Nerve Block Refer to Anesthesia Record ESTIMATED BLOOD LOSS: 15 TOURNIQUET TIME: 0 Patient was transported to: PACU Patient's condition: stable Indications: Please see complete medical record for details. Findings: Comminuted, displaced distal fibula and medial malleolus fractures. Unstable ankle mortise and syndesmosis. Procedure Description: In the operating room, general anesthesia was induced. The patient was positioned supine on the operating room table. All bony prominences were well-padded. Preoperative antibiotics were administered. The right ankle was prepped and draped in the usual sterile fashion. The correct patient, procedure, and side of the procedure were all verified prior to incision. The plan medial lateral approaches were pretty injected with lidocaine and bupivacaine mixture containing epinephrine. The direct lateral approach to the distal fibula fracture was taken down to bone retracting neurovascular structures and tendons. The distal fibula was exposed to the level of the syndesmosis distally and proximally slightly above the fracture site. There was significant bone comminution at the fracture site with multiple small unattached pieces removed. A larger posterior piece had soft tissue attachment and was preserved. The fracture was provisionally reduced with bone clamps. Fluoroscopy confirmed appropriate length and good early mortise reduction. A lateral plate was applied and centered distally with the last 2 screw holes planned for syndesmosis fixation targeting an area medially above the zone of fracture. The plate was secured with a cortex screw distally, plate rotated optimally to fit proximally and secured with a cortex screw proximally. An additional distal and 2 proximal cortex was replaced completing distal fibula fracture fixation. The medial malleolus fracture was exposed through a medial curvilinear incision. As expected there was significant comminution here with multiple fragments and fracture extension distally to the colliculi. There was also medial wall segmental comminution. Soft tissue and periosteum that was interposed was removed. These pieces were provisionally reduced, but were not large enough to accommodate screw fixation. The fracture angle also did not allow the usual tip of the malleolus into the distal tibial screw perpendicular to the more shoulder height fracture line without falling into multiple fracture fragments. Instead, suture tape fixation was chosen to minimize risks of hardware issues. A 2 mm drill was used to make proximal and distal drill holes encompassing the larger fracture fragments and a suture tape was passed around these pieces of bone and secured over the top. There was reasonably good reduction and fixation strength considering the comminution. The posterior malleolus was then inspected with the ankle in neutral and dorsiflexion and confirmed to be minimally displaced. Attention was then turned lastly to the syndesmosis, which was was known to be on unstable due to the dislocation. The tight rope drill was used through the distal plate screw holes taking care to ensure the appropriate trajectory from lateral to medial and parallel to the ankle joint erring on the side of slightly proximal for the distal body and to avoid medial fracture comminution. 2 tight rope devices were placed and then provisionally tightened. Ankle fluoroscopy demonstrated good maintained mortise reduction. The devices were final tightened. External rotation stress x-rays confirm stable ankle mortise. Knots were tied and sutures cut. Medial lateral wounds were copiously irrigated normal saline. Appropriate hemostasis was achieved. Subcutaneous tissue was closed in 2-0 Monocryl in a buried interrupted fashion. Skin was closed using 3-0 nylon horizontal mattresses. The extremity was cleansed with hydroperoxide, saline, and then dried. Xeroform applied over the incisions followed by gauze, ABD pads, sterile soft roll. A short leg plaster AO splint was then applied maintaining the foot and ankle in neutral position. The patient awoke from anesthesia without complication and was transferred to the recovery room in a stable condition.
--- NOTE | 2022-05-29 14:57 | W.PM.DSUDISC ---
Discharge Plan Disposition Patient Disposition: HOME Condition: Stable Discharge Details Reason For Visit: Right ankle surgery Attending Provider: Chicho Sim Primary Care Provider: SAY JIMENEZ Home Meds and New Rx's Prescriptions: New aspirin 81 mg tablet,delayed release (DR/EC) 81 mg PO DAILY 30 Days Qty: 30 0RF naproxen 250 mg tablet 250 - 500 mg PO BID PRNQty: 40 0RF Rx Instructions: take with a meal oxycodone 5 mg tablet 5 - 10 mg PO Q4H MDD 30 mg PRN (Reason: moderate to severe pain) Qty: 18 0RF Continued albuterol sulfate [Proventil HFA] 90 mcg/actuation HFA aerosol inhaler 2 puff inhalation BID PRN acetaminophen [Tylenol Extra Strength] 500 mg tablet 500 mg PO Q6H PRN cetirizine 10 mg tablet 10 mg PO DAILY PRN citalopram 20 MG tablet 20 mg PO HS Discontinued ibuprofen 200 mg tablet 200 mg PO Q6H PRN Discharge Instructions Additional Instructions: Surgery: Right ankle and syndesmosis ORIF (trimalleolar ankle fracture/ dislocation) Activity: Nonweightbearing. Strict elevation to minimize swelling and discomfort. Encourage range of motion/wiggling toes to increase circulation and prevent stiffness. You may rest ankle on ground for balance and stance. A physical therapy prescription will be provided separately in the office at follow-up. Prescriptions: Aspirin 81 mg take 1 daily to prevent a blood clot 30 days Naproxen 250 mg take 1-2 every 12 hours with a meal as needed for moderate pain Oxycodone 5 mg take 1-2 every 4-6 hours as needed for severe pain You may use [id number] Tylenol (acetaminophen) as needed for mild pain. These pain medications may be taken all at once or in different combinations as needed. Also, recommend Colace (docusate) as a stool softener as surgery and pain medicine cause constipation. You may try [id number] diphenhydramine (Benadryl) 25-50 mg nightly as a sleep aid Dressings: Leave splint and dressing in place until follow-up. Keep clean and dry at all times. Follow-up: 10-[address] Sim You may take off the leg compression stockings this evening at home. You may also leave them on a few days longer if you have a history of leg swelling or edema. Let us know right away if you develop any redness, drainage, fevers, chest pain, or trouble breathing. Do not drink alcohol or drive for at least 24 hours after anesthesia. Please call the office during business hours with any questions or concerns. Discharge Orders Discharge Orders: Discharge Order (Routine); Ordered 05/29/22 Ordered By: Chicho Sim DS: Diagnosis Discharge Diagnosis (1) Trimalleolar fracture of ankle, closed: Status: Acute
--- NOTE | 2022-05-29 15:08 | W.ANESPOSTOP ---
Postoperative Evaluation Date, Time and Location Date Performed: 05/29/22 Time Performed: 15:09 Patient Location: PACU Vital Signs Most Recent Imported Vital Signs: Most Recent Vital Signs Temp Pulse Resp BP Pulse Ox 36.4 C L 80 15 99/58 L 95 05/29/22 14:50 05/29/22 14:50 05/29/22 14:50 05/29/22 14:50 05/29/22 14:50 Pain Score Most Recent Pain Score: Most Recent Pain Score Pain Level 0 05/29/22 14:50 Assessment Mental Status: Awake (Alert & Oriented to Patient Baseline) Airway and Respiratory Function: Patent airway with normal (patient baseline) respiratory exam Cardiovascular Function: Hemodynamically Stable Hydration Status: Adequately Hydrated Nausea & Vomiting: No Nausea or Vomiting Pain: Pain is tolerable per patient Peripheral Nerve Block: Regional nerve block not resolved at time of post operative discharge
--- NOTE | 2022-05-29 15:58 | PT.INIE ---
Date of service: 05/29/22 Time of Service: 15:58 PT Notes Visit Reasons: Right ankle surgery Physical Therapy Day Surgery Initial Evaluation Date: 05/30/2022 Referring Doctor: Chicho Sim MD PT Orders: PT CONSULT: S/P Ortho Surgery. Rt ankle fracture Precautions: NWB on R LE wih AD. Per Dr. Sim, may do TDWB for stair safety only. Patient Profile/Admitting Diagnosis: Patient is a 31-year-old female with displaced trimalleolar fracture dislocation of R lower right leg status post ORIF on postoperative day 0. PMHX: All Active Problems Dislocation of right ankle joint (Acute) Trimalleolar fracture of ankle, closed (Acute 05/25/22) Fatty liver (Acute) Abdominal pain (Acute) Conductive hearing loss in left ear (Acute) Chronic otitis media of left ear (Acute) Left acute serous otitis media (Acute) PMS (premenstrual syndrome) (Acute) GERD (gastroesophageal reflux disease) (Chronic) BMI 34.0-34.9,adult (Acute) Preventative health care (Acute) Abscess, perianal (Acute) Shingles (Acute) Unspecified open wound of oral cavity, initial encounter (Acute) Urinary frequency (Acute) Vaginal discharge (Acute) Acute recurrent streptococcal tonsillitis (Acute) Strep pharyngitis (Acute) Oral contraception initiation (Acute) Routine follow-up (Acute) Headache in (Acute) (Acute) Gestational diabetes (Acute) Migraine headache without aura (Acute) Migraine headache with aura (Acute) Anxiety (Chronic) takes citalopramBMI 36.0-36.9,adult (Acute) Benign heart murmur (Acute) as a child History of recurrent UTIs (Acute) Migraine (Chronic) Occasional associated with aura.? Treated with Excedrin.Smoker (Acute 12/07/13) Medical History 2 weeks follow-up Dental infection Depression Encounter for smoking cessation counseling History of abnormal cervical Pap smear LGSIL 2012, HPV neg, normal since Palpitations Tobacco use Surgical History? History of tooth extraction History of wisdom tooth extraction Hx of cholecystectomy Social History/Home Situation: Lives with in a private home with 5 steps to enter with rsail on both sides that are far apart. Equipment Owned/DME: MATTHEW Subjective: [place] cid doing the stairs. Happy that she tried. Much more confident after stair negotiation training. Objective: General Observation: Seated on chair. Mental Status: A and O x 4 Pain: 3-4/10 in R surgical site ROM: Right Lower Extremity: Hip flexion WFL. Hip abduction WFL. Knee flexion up to 100 degrees. Ankle dorsiflexion NT. Ankle plantarflexion NT. Left Lower Extremity: Hip flexion WFL. Hip abduction WFL. Knee flexion WFL. Ankle dorsiflexion WFL. Ankle plantarflexion WFL. Strength: Right Lower Extremity: Hip flexors 5/5. Hip abductors 5/5. Knee flexors 5/5. Knee extensors 4/5. Ankle dorsiflexors NT. Ankle plantarflexors NT. Left Lower Extremity:Hip flexors 5/5. Hip abductors 5/5. Knee flexors 5/5. Knee extensors 5/5. Ankle dorsiflexors 5/5. Ankle plantarflexors 5/5. Sensation: Intact in R UE as to pain and pressure Bed Mobility/Transfers: Supine to sit stand by assist Sit to stand stand by assist Stand to sit stand by assist Bed to chair stand by assist Gait: Walked with nursing from bedside to bedside recliner using MATTHEW with good tehcnique, complaint with WB recommendation. Stairs: Stand by assist up and down 6 x 4-inch steps while holding onto B rails with TDWB on R LE without report of pain using good leg to hop up and down onto step. Also instructed to on an alternate way to use B hands on one rail in going down with R knee bent. Balance: Static Sitting: Normal Dynamic Sitting: Normal Static Standing: Fair Dynamic Standing: Fair Special Tests: Mobility Limitations Standardized Measure [facility] AM-PAC 6 clicks Basic Mobility Inpatient Short Form: Raw Score: 23 CMS Score: 11% deficit Informed Consent/Education: Patient instructed in purpose of PT consult. Education and training on stair negotiation has been provided to maximize safety at home. Assessment: Patient requores the use of MATTHEW for all mobility ADL performance. May hold onto rail/s as needed for stability and WB compliance. Patient presents with clinical signs and symptoms consistent with current/admitting diagnoses that have resulted to mobility limitations, gait instability, generalized weakness, and impairment of motor control as demonstrated by the following impairment level findings: 1. Decreased strength to left leg and ankle major muscle groups 2. Impaired standing balance 3. Limitation of joint range of motion in left ankle Impairments are contributing to the following functional limitations: 1. Inability to safely ambulate without assistive device 2. Increase completion time for mobility ADL performance 3. Increased fall risk Patient is assessed as a 85889 complexity based on the following: History: 31-year-old female with impairment level findings, functional limitations, and past medical history as indicated above Examination: Demonstrable impairment in strength, balance, and mobility level with underlying impairments and functional limitations as documented above Presentation: Evolving Decision Makin low complexity Goals: N/A. PT evaluation and 1-2 treatment sessions only for functional mobility training using recommended AD. Plan of Care/Treatment Plan: N/A. PT evaluation and 1-2 treatment session only for functional mobility training using recommended AD. DISCHARGE RECOMMENDATIONS: [] Home with no services. [] Home with services [specify] [X] Home with outpatient PT. Home when medically cleared by orthopedic surgeon. Will benefit from the use of a bilateral axillary crutches for mobility ADL performance to reduce fall risk. Consider outpatient PT services in order to maximize functional mobility outcome and facilitate independent community ambulation with least restrictive device. [] SNF for continued rehabilitation [] [] Nurse Transplant Care [] [] SNF versus LTC based on ability to participate and progress [] TREATMENT CODE/TIME: 56421 x 21 minutes beginning at 15:58 PM. Thank you for the opportunity to participate in the care of this patient. Barb Colunga PT, DPT, CLT [facility] [place], [place]
== END 2022-05-29 16:19 | disposition home or self-care (01) ==
PROVIDERS: PCP Nurse Practitioner Family; Visit Provider Student in an Organized Health Care Education/Training Program
PROC: (CPT 27822; principal; 2022-05-29 13:15)
DX: S93.491A Sprain of other ligament of right ankle, initial encounter; W10.8XXA Fall (on) (from) other stairs and steps, initial encounter; Y93.02 Activity, running; S82.851A Displaced trimalleolar fracture of right lower leg, initial encounter for closed fracture
CPT/HCPCS: 27822; 27829; 76942; 81025; 97161; 73610; 76856; J0690; J1100; J1885; J2250; J2405; J2704

== ENCOUNTER 2022-06-11 15:30 | Outpatient (CLI) | payer MEDICAID, SELFPAY ==
--- NOTE | 2022-06-11 15:15 | DI.RAD_ITS ---
Exam(s) XR ANKLE RT COMPLETE EXAM: XR ANKLE RT COMPLETE CLINICAL HISTORY: ORIF R ankle TECHNIQUE: COMPARISON: XA XR ANKLE RT COMPLETE from 05/29/2022 FINDINGS: Three views were obtained and show plate and screw fixation of the distal fibula with fixation of the tibiofibular joint noted as well. No gross interval change in alignment of trimalleolar fracture fr agments comparison with intraoperative film of May 29. IMPRESSION: RADIATION DOSE DELIVERED: Total DLP
== END 2022-06-11 15:31 | disposition home or self-care (01) ==
LOC: DIORS 15:30
PROVIDERS: PCP Nurse Practitioner Family; Referring Provider Nurse Practitioner Family; Visit Provider Physician Assistant
DX: S82.851A Displaced trimalleolar fracture of right lower leg, initial encounter for closed fracture (principal); X58.XXXA Exposure to other specified factors, initial encounter
CPT/HCPCS: 73610

== ENCOUNTER 2022-07-23 14:52 | Outpatient (CLI) | payer MEDICAID, SELFPAY ==
--- NOTE | 2022-07-23 14:15 | DI.RAD_ITS ---
Exam(s) XR ANKLE RT COMPLETE EXAM: XR ANKLE RT COMPLETE CLINICAL HISTORY: ankle fx f/u. TECHNIQUE: 2D digital imaging was performed. Three images were obtained. AP, lateral and oblique vi ews were obtained. COMPARISON: CR XR ANKLE RT COMPLETE from 06/11/2022 FINDINGS: BONES: There are stable post operative changes present. No new fracture or dislocation. JOINTS: The joint spaces are well maintained. SOFT TISSUE: There is soft tissue swelling of the ankle. IMPRESSION: Stable postoperative changes. DATA REPOSITORY: RADIATION DOSE DELIVERED:
== END 2022-07-23 14:53 | disposition home or self-care (01) ==
LOC: DIORS 14:53
PROVIDERS: PCP Nurse Practitioner Family; Referring Provider Nurse Practitioner Family; Visit Provider Student in an Organized Health Care Education/Training Program
DX: S82.851D Displaced trimalleolar fracture of right lower leg, subsequent encounter for closed fracture with routine healing (principal); X58.XXXD Exposure to other specified factors, subsequent encounter
CPT/HCPCS: 73610

== ENCOUNTER 2022-08-27 13:50 | Outpatient (REF) | payer MEDICAID, SELFPAY | END 2022-08-27 13:51 | disposition home or self-care (01) | LOC: LBN 13:50 | PROVIDERS: PCP Nurse Practitioner Family; Visit Provider Physician Assistant Medical | DX: J03.01 Acute recurrent streptococcal tonsillitis (principal) | CPT/HCPCS: 87070 ==

== ENCOUNTER 2022-09-03 15:20 | Outpatient (CLI) | payer MEDICAID, SELFPAY ==
--- NOTE | 2022-09-03 14:35 | DI.RAD_ITS ---
Exam(s) XR ANKLE RT COMPLETE EXAM: XR ANKLE RT COMPLETE CLINICAL HISTORY: right ankle f/u. TECHNIQUE: 2D digital imaging was performed. Three views. COMPARISON: CR XR ANKLE RT COMPLETE from 07/23/2022 FINDINGS: There has been no change in fracture or hardware or alignment. There is increased fracture healing c ompared prior exams. There is disuse osteopenia. DATA REPOSITORY: RADIATION DOSE DELIVERED:
== END 2022-09-03 15:21 | disposition home or self-care (01) ==
LOC: DIORS 15:21
PROVIDERS: PCP Nurse Practitioner Family; Referring Provider Nurse Practitioner Family; Visit Provider Student in an Organized Health Care Education/Training Program
DX: S82.851D Displaced trimalleolar fracture of right lower leg, subsequent encounter for closed fracture with routine healing; X58.XXXD Exposure to other specified factors, subsequent encounter; M85.871 Other specified disorders of bone density and structure, right ankle and foot
CPT/HCPCS: 73610

== ENCOUNTER 2022-09-25 14:25 | Outpatient (REF) | payer MEDICAID, SELFPAY ==
[2022-09-25 16:50] LABS: ALT 26 U/L (14-59); AST 17 U/L (15-37); Albumin 3.9 g/dL (3.4-5.0); Alkaline Phosphatase 96 U/L (46-116); Amylase 46 U/L (25-115); BUN 12 mg/dL (7-18); Bilirubin, Total 1.1 mg/dL (0.2-1.0); CREATININE 0.7 mg/dL (0.55-1.02); Calcium 9.1 mg/dL (8.5-10.1); Chloride 104 mmol/L (98-107); Estimated GFR 119.24 (mL/min/1.73m2); Glucose 107 mg/dL (74-106); Lipase 33 U/L (16-77); Sodium 137 mmol/L (136-145); TSH (W/Ref FT4) 1.74 uIU/mL (0.36-3.74); Total Protein 6.9 g/dL (6.4-8.2)
== END 2022-09-25 14:26 | disposition home or self-care (01) ==
LOC: NCHCN 14:25
PROVIDERS: PCP Nurse Practitioner Family; Visit Provider Nurse Practitioner Family
DX: R10.11 Right upper quadrant pain (principal); F41.9 Anxiety disorder, unspecified; N92.6 Irregular menstruation, unspecified
CPT/HCPCS: 80053; 83690; 82150; 84443

== ENCOUNTER 2023-03-24 09:58 | Emergency (ER) | payer BC, SELFPAY ==
[2023-03-24 10:08] VITALS: BP 115/77; PULSE 111; RESP 18; TEMP 37.3; O2SAT 98
--- NOTE | 2023-03-24 10:15 | DI.RAD_ITS ---
Exam(s) XR ANKLE LT COMPLETE EXAM: XR ANKLE LT COMPLETE CLINICAL HISTORY: Left ankle swelling, Pain TECHNIQUE: 2D digital imaging was performed. Three views. COMPARISON: CR XR ANKLE RT COMPLETE from 09/03/2022 FINDINGS: BONES: No acute fracture is present. No bony destructive lesion is seen. JOINTS:The ankle mortise is normally aligned. SOFT TISSUE: Swelling IMPRESSION: No acute bony abnormality. DATA REPOSITORY: RADIATION DOSE DELIVERED:
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
[2023-03-24] MEDS: Acetaminophen 325 MG TAB 650 MG PO (11:17)
[2023-03-24 11:57] VITALS: BP 125/78; PULSE 86; RESP 18; TEMP 36.6; O2SAT 98
== END 2023-03-24 12:11 | disposition home or self-care (01) ==
PROVIDERS: Emergency Provider Registered Nurse Emergency; PCP Nurse Practitioner Family
DX: S93.402A Sprain of unspecified ligament of left ankle, initial encounter (principal); X58.XXXA Exposure to other specified factors, initial encounter
CPT/HCPCS: 81025; 99283; 73610

== ENCOUNTER 2024-02-02 14:55 | Outpatient (REF) | payer BC, SELFPAY ==
[2024-02-02 19:03] LABS: Abs Immature Grans 0.03 10^3/uL (0.0-0.06); Absolute Basophil Count 0.05 10^3/uL (0.0-0.2); Absolute Eosinophil Count 0.04 10^3/uL (0.0-0.7); Absolute Lymphocyte Count 1.33 10^3/uL (1.2-3.4); Absolute Monocyte Count 0.27 10^3/uL (0.1-0.8); Absolute Neutrophil Count 5.27 10^3/uL (1.2-6.7); Basophils % 0.7 %; Eosinophils % 0.6 %; HCT 40.9 % (36.0-46.0); HGB 13.8 g/dL (11.2-15.7); Immature Grans % 0.4 %; MCH 32.5 pg (27.0-33.0); MCHC 33.7 % (32.0-36.0); MCV 96 fL (80-95); MPV 11.6 fL (8.0-11.0); Monocytes % 3.9 %; Neutrophils % 75.4 %; Platelet Count 237 10^3/uL (130-400); RBC 4.25 10^6/uL (3.93-5.22); RDW 13.1 % (11.7-14.6); RDW-SD 45.7 fL; WBC 6.99 10^3/uL (4.4-10.8)
[2024-02-02 19:26] LABS: ALT 41 U/L (14-59); AST 36 U/L (15-37); Albumin 3.9 g/dL (3.4-5.0); Alkaline Phosphatase 77 U/L (46-116); Anion Gap 13.2 mmol/L (3-11); BUN 10 mg/dL (7-18); Bilirubin, Total 1.18 mg/dL (0.2-1.0); CO2 21.8 mmol/L (21.0-32.0); CREATININE 0.9 mg/dL (0.55-1.02); Calcium 8.9 mg/dL (8.5-10.1); Chloride 103 mmol/L (98-107); Estimated GFR 87.65 (mL/min/1.73m2); Glucose 122 mg/dL (74-106); Potassium 3.8 mmol/L (3.5-5.1); Sodium 138 mmol/L (136-145); TSH (W/Ref FT4) 1.41 uIU/mL (0.36-3.74); Total Protein 7.3 g/dL (6.4-8.2)
== END 2024-02-02 14:56 | disposition home or self-care (01) ==
LOC: NCHCN 14:55
PROVIDERS: PCP Nurse Practitioner Family; Visit Provider Nurse Practitioner Family
DX: N93.8 Other specified abnormal uterine and vaginal bleeding (principal); F41.8 Other specified anxiety disorders
CPT/HCPCS: 80053; 84443; 85025

== ENCOUNTER 2024-03-15 22:42 | Emergency (ER) | payer BC, SELFPAY ==
[2024-03-15 22:42] VITALS: BP 124/79; PULSE 97; RESP 16; TEMP 36.6; O2SAT 100
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
== END 2024-03-15 23:34 | disposition home or self-care (01) ==
PROVIDERS: Emergency Provider Student in an Organized Health Care Education/Training Program; PCP Nurse Practitioner Family
DX: F10.929 Alcohol use, unspecified with intoxication, unspecified (principal); F17.290 Nicotine dependence, other tobacco product, uncomplicated
CPT/HCPCS: 36416; 82962; 99282

== ENCOUNTER 2024-03-29 15:38 | Outpatient (REF) | payer BC, SELFPAY ==
--- NOTE | 2024-03-29 15:00 | PAPFT_PTH ---
PATIENT: Halie Zarate LOC: [facility] U#:[id number] AGE/SX: 33/F ROOM: RE03/29/[address]: Maral Hudson NP : 1990 BED: DIS: 03/29/2024 SPEC #: [id number] RECD: 03/29/24 17:44 STATUS: SWATI REShant #: [id number] KAIT: 03/29/24 15:[address]: Maral Hudson NP DEPT: [facility] Cytology RECD BY: Tiffany Ag ENTERED: 03/29/24 17:44 SP TYPE: PAPFT OTHR DR: SAY JIMENEZ NP Tissues: 1 - CX/ENDOCX FOR PAP SMEARS Procedures: PAP THIN PREP/[facility] Screening HPV DNA PROBE Comments: [id number] (HPV 16 & 18/45)
== END 2024-03-29 15:39 | disposition home or self-care (01) ==
LOC: LBN 15:38
PROVIDERS: PCP Nurse Practitioner Family; Visit Provider Nurse Practitioner Women's Health
DX: N93.9 Abnormal uterine and vaginal bleeding, unspecified (principal); Z30.011 Encounter for initial prescription of contraceptive pills; Z12.4 Encounter for screening for malignant neoplasm of cervix
CPT/HCPCS: 88142; 87624

== ENCOUNTER 2024-04-21 19:25 | Outpatient (REF) | payer BC, SELFPAY ==
[2024-04-21 17:23] LABS: Bacteria Moderate HPF (Negative); C & S Indicated? C&S Done As Ordered; Casts Negative LPF (Negative); Crystals Negative HPF (Negative); Epithelial Cells Few HPF (Negative); Mucus Negative (Negative); RBC 0-2 HPF (0-2)
== END 2024-04-21 19:26 | disposition home or self-care (01) ==
LOC: LBN 19:25
PROVIDERS: PCP Nurse Practitioner Family; Visit Provider Physician Assistant Medical
DX: R10.30 Lower abdominal pain, unspecified (principal); R82.89 Other abnormal findings on cytological and histological examination of urine
CPT/HCPCS: 81015; 87086

== ENCOUNTER 2024-06-12 20:27 | Emergency (ER) | payer BC, SELFPAY ==
[2024-06-12 20:29] VITALS: BP 126/96; PULSE 107; RESP 18; TEMP 36.5; O2SAT 100
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
[2024-06-12 20:36] VITALS: BP 126/96; PULSE 102; RESP 16; TEMP 36.6; O2SAT 100
[2024-06-12] MEDS: Amox. 875/Clav. 125, 2 TABS/BTL 1 TAB PO (20:43)
[2024-06-12 20:46] VITALS: BP 126/96; PULSE 107; RESP 16; TEMP 36.5; O2SAT 100
== END 2024-06-12 21:00 | disposition home or self-care (01) ==
LOC: ER 20:41
PROVIDERS: Emergency Provider Physician Assistant; PCP Nurse Practitioner Family
DX: R59.0 Localized enlarged lymph nodes (principal); H92.02 Otalgia, left ear; F17.290 Nicotine dependence, other tobacco product, uncomplicated
CPT/HCPCS: 99283

== ENCOUNTER 2024-06-13 15:36 | Emergency (ER) | payer BC, SELFPAY ==
[2024-06-13 15:36] VITALS: BP 132/92; PULSE 116; RESP 14
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
[2024-06-13 15:47] VITALS: TEMP 37.9
== END 2024-06-13 16:28 | disposition home or self-care (01) ==
PROVIDERS: Emergency Provider Emergency Medicine; PCP Nurse Practitioner Family
DX: R59.0 Localized enlarged lymph nodes (principal)
CPT/HCPCS: 99281; 99282

== ENCOUNTER 2024-07-05 19:52 | Emergency (ER) | payer BC, SELFPAY ==
[2024-07-05 19:54] VITALS: BP 151/103; PULSE 108; RESP 20; TEMP 36.6; O2SAT 100
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
--- NOTE | 2024-07-06 13:08 | PDOC.MHCN ---
Date of service: 07/05/24 Time of Service: 20:46 PHQ-9 Over the last 2 weeks, how often have you been bothered by any of the following problems? 1. Little interest or pleasure in doing things: not at all 2. Feeling down, depressed, or hopeless: several days 3. Trouble falling or staying asleep, or sleeping too much: several days 4. Feeling tired or having little energy: several days 5. Poor appetite or overeating: more than half the days 6. Feeling bad about yourself - or that you are a failure or have let yourself and your family down: not at all 7. Trouble concentrating on things, such as reading the newspaper or watching television: several days 8. Moving or speaking so slowly that other people could have noticed? - Or the opposite - being so fidgety or restless that you have been moving around a lot more than usual: not at all 9. Thoughts that you would be better off or of hurting yourself in some way: not at all Total score: 6 If you checked off any problems, how difficult have these problems made it for you to do your work, take care of things at home, or get along with other people?: not difficult at all Source: Developed by Drs. Alexis Daniels, Aurelia Peraza, Uvaldo Ortez and colleagues, with an educational soledad from [employer]. Suicide Severity Rate CSSRS Have you wished you were or wished you could go to sleep and not wake up?: No Have you actually had any thoughts of killing yourself?: No CSSRS3 Have you ever done anything, started to do anything or prepared to do anything to end your life?: No Screening Score Total Score: 0 Screening: Negative Mental Health Emergency Note Release [facility] release signed:: No Reason for Visit Halie presented to [facility] reporting she did not want to be alone as she was struggling with her mental health and had thoughts of self harming. Halie is not known to [facility] but is followed by a therapist in the community who she sees biweekly. In the last 2 weeks has the pt presented for prior to today?: Unknown Client Information Client is: New Well Housed: Yes Non Suicidal Self Injury History: yes, Halie reports history of self cutting and burning. Halie reports having these thoughts today which is why she came to the hospital as she has not self harmed in several months. Safety Risk/Harm to Self or Others Current Ideation to Harm Self or Others: No Risk: Does risk to harm exist?: No Risk: N/A Duty to warn indicated: No Asssessment/Mental Status Appearance: Unremarkable Attitude: Cooperative Behavior: Unremarkable Speech: Normal Affect: Cogruent with mood Mood: Stressed and Depressed Thought process: Unremarkable Hallucinations: No evidence Delusions: No evidence Attention: Unremarkable Perception: Not impaired Orientation: Fully orientated Memory: Intact Insight: Good Judgement: Good Neurovegetative Symptoms Sleep: No change Appetitie: No change Interests: No change Energy: No change Substance Use: Do you use nicotine?: Yes Have you used substances in the last 7 days?: yes, Halie reports that she drinks alcohol sometimes and sometimes it is in excess. Additional Issues: Assaultive/Threatening Behavior: No Medical Concerns: No Client engaged in active self harm w/weapon: No Threatening to run away: No Child reported abuse/neglect: No Voluntarily presenting for services: Yes Domestic violence is a concern: No Extreme Psychosis or extreme behavior is present: No Impression Halie presented to [facility] due to her mental health concerns. Per her report she feels she is having thoughts of self harm and has a history of NSSI. Halie reports she has a history of self cutting and burning but has not done this in months. Halie denies HI or SI and reports she wants to live. Halie reports she came to the hospital because she did not want to be alone. Halie came to the hospital with her father who she reports is a good support. Halie reports she does not live alone, she lives with her mother who she reports is a support sometimes. Halie reports she does not need additional supports other than her current therapist who she sees next Thursday. Halie reports that she is okay to go home as she will not be alone. Halie denied a safety plan. Resources Reos[employer]ces reviewed and given:: [phone], Community therapist and [facility] Plan/Disposition Recommended Disposition: PCP/Office visit and Therapy. Plan: Halie reports she does not want a safety plan and does not want to complete intake with [facility]. Halie will be discharged from [facility] and sent home with follow up from her counselor at her PCP office. Person reported agreement to plan: Yes Reports/communication Outcome discussed with: ED/Personnel
== END 2024-07-05 20:54 | disposition home or self-care (01) ==
PROVIDERS: Emergency Provider Emergency Medicine; PCP Nurse Practitioner Family
DX: F32.A Depression, unspecified (principal); F41.9 Anxiety disorder, unspecified; F10.90 Alcohol use, unspecified, uncomplicated; F17.290 Nicotine dependence, other tobacco product, uncomplicated
CPT/HCPCS: 00123; 96127; 99283; 99284

== ENCOUNTER 2024-07-19 16:19 | Outpatient (REF) | payer BC, SELFPAY ==
[2024-07-19 15:01] LABS: D-Dimer 715 ng/mlFEU (<500)
== END 2024-07-19 16:20 | disposition home or self-care (01) ==
LOC: LBN 16:19
PROVIDERS: PCP Nurse Practitioner Family; Visit Provider Nurse Practitioner Family
DX: R07.89 Other chest pain (principal)
CPT/HCPCS: 85379

== ENCOUNTER 2025-06-03 14:54 | Emergency (ER) | payer BC, SELFPAY ==
[2025-06-03 14:57] VITALS: BP 142/91; PULSE 97; RESP 16; TEMP 36.8; O2SAT 100
[2025-06-03 15:00] VITALS: BP 142/91; PULSE 97; RESP 16; TEMP 36.8; O2SAT 100
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
[2025-06-03] MEDS: Amoxicillin 875 MG TAB PO (15:26)
== END 2025-06-03 15:14 | disposition home or self-care (01) ==
PROVIDERS: Emergency Provider Student in an Organized Health Care Education/Training Program; PCP Nurse Practitioner Family
DX: H66.92 Otitis media, unspecified, left ear (principal); F17.290 Nicotine dependence, other tobacco product, uncomplicated
CPT/HCPCS: 99283

== ENCOUNTER 2025-06-14 20:56 | Emergency (ER) | payer BC, SELFPAY ==
[2025-06-14 20:58] VITALS: BP 158/100; PULSE 104; RESP 18; TEMP 36.6; O2SAT 97
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
== END 2025-06-14 22:05 | disposition home or self-care (01) ==
PROVIDERS: Emergency Provider Physician Assistant; PCP Nurse Practitioner Family
DX: F10.90 Alcohol use, unspecified, uncomplicated (principal); I10 Essential (primary) hypertension
CPT/HCPCS: 99283 ×2

== ENCOUNTER 2025-07-18 12:14 | Emergency (ER) | payer BC, SELFPAY ==
[2025-07-18 12:16] VITALS: BP 151/92; PULSE 97; RESP 16; TEMP 36.6; O2SAT 98
--- NOTE | 2025-07-18 13:26 | DI.US_ITS ---
Exam(s) US PELVIS TRANSVAGINAL EXAM: US PELVIS TRANSVAGINAL CLINICAL HISTORY: dysmenorrhea, menometrorrhagia TECHNIQUE: Transabdominal and transvaginal imaging was performed using standard protocol. COMPARISON: US US PELVIS TRANSVAGINAL from 02/03/2024 FINDINGS: Bladder is unremarkable. UTERUS: Anteverted. 7.7 x 4.7 x 4.7 cm Endometrium: 5 mm, homogeneous. Myometrium: Unremarkable. Cervix: Unremarkable. OVARIES: Right: Cyst or mass: None. Left: Cyst or mass: None. DOPPLER: Color: Symmetric and uniform flow to both ovaries. No hyperemia. CUL-DE-SAC: Free fluid: None. IMPRESSION: 1. Normal-appearing uterus with endometrial stripe within normal limits. 2. Unremarkable bilateral ovaries. DATA REPOSITORY:
[2025-07-18 14:09] LABS: Abs Immature Grans 0.01 10^3/uL (0.0-0.06); HCT 39.6 % (36.0-46.0); HGB 13.0 g/dL (11.2-15.7); Immature Grans % 0.2 %; MCH 30.9 pg (27.0-33.0); MCHC 32.8 % (32.0-36.0); MCV 94 fL (80-95); MPV 10.6 fL (8.0-11.0); Platelet Count 257 10^3/uL (130-400); RBC 4.21 10^6/uL (3.93-5.22); RDW 12.8 % (11.7-14.6); RDW-SD 44.0 fL; WBC 6.37 10^3/uL (4.4-10.8)
[2025-07-18 14:27] LABS: ALT 40 U/L (10-49); AST 33 U/L (<34); Albumin 4.5 g/dL (3.2-5.0); Alkaline Phosphatase 60 U/L (46-116); Anion Gap 9.6 mmol/L (3-11); BUN 11 mg/dL (9-23); Bilirubin, Total 0.6 mg/dL (0.2-1.2); CO2 25.4 mmol/L (20.0-31.0); Calcium 9.5 mg/dL (8.3-10.6); Chloride 105 mmol/L (98-107); Glucose 85 mg/dL (74-106); Potassium 3.8 mmol/L (3.5-5.1); Sodium 140 mmol/L (136-145); Total Protein 7.6 g/dL (5.7-8.2)
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
--- NOTE | 2025-07-18 16:18 | ED.PROG_ITS ---
Date of service: 07/18/25 Time of Service: 16:00 Medical Decision Making Handoff report received from KELLI Edge, daytime JONH. Please see her note for full HPI, PE, DDx, and interpretation of labs. In short, Halie is a 35-year-old female who presented to the emergency department today for evaluation of heavy vaginal bleeding with cramping x 11 days straight, going through approximately 6-8 tampons and pads daily. Denies associated fever/chills, dizziness, palpitations, shortness of breath, nausea/vomiting. She does take oral contraceptives, has not missed any doses, had placebo earlier in the month of June but is currently taking the active pills. She does vape tobacco. She is sexually active and monogamous with a female partner. CBC, CMP, and hCG unremarkable. Pelvic ultrasound performed, no acute abnormalities noted. Discussed case with Dr. Cueto, HOME HEALTH CLINICAL LIAISON. She recommends close follow-up with women's wellness [employer] SALESP[employer] Maral Hudson tomorrow, as patient is hemodynamically stable and has a good relationship with her provider. Likely requires change in oral contraceptives which will require discussion. She will help to arrange for phone call or telehealth visit. Reviewed discharge instructions with patient, including symptomatic management, red flags indicate need for return to emergency care, and importance of follow- up with women's wellness tomorrow. Work note provided. She voices agreement plan of care. Imaging Data Radiologic Study: Radiologist's impression: Exam(s) US PELVIS TRANSVAGINAL EXAM: US PELVIS TRANSVAGINAL CLINICAL HISTORY: dysmenorrhea, menometrorrhagia TECHNIQUE: Transabdominal and transvaginal imaging was performed using standard protocol. COMPARISON: US US PELVIS TRANSVAGINAL from 02/03/2024 FINDINGS: Bladder is unremarkable. UTERUS: Anteverted. 7.7 x 4.7 x 4.7 cm Endometrium: 5 mm, homogeneous. Myometrium: Unremarkable. Cervix: Unremarkable. OVARIES: Right: Cyst or mass: None. Left: Cyst or mass: None. DOPPLER: Color: Symmetric and uniform flow to both ovaries. No hyperemia. CUL-DE-SAC: Free fluid: None. IMPRESSION: 1. Normal-appearing uterus with endometrial stripe within normal limits. 2. Unremarkable bilateral ovaries. Exam Narrative Exam Narrative: Please see note by KELLI Edge for full physical exam Const General: cooperative, healthy appearing, comfortable and no acute distress Resp Effort & Inspection: normal respiratory effort and able to speak in complete sentences Neuro General: patient alert, patient oriented x3, gait normal, tone normal and moves all extremities Discharge Plan Disposition Patient Disposition: Home Discharge Details Clinical Impression: Heavy menstrual bleeding Primary Care Provider: SAY JIMENEZ ED Provider: Sayra Espinal Home Meds and New Rx's Prescriptions: No Action norethindrone-e.estradiol-iron [.01/06 (28)] 1.5 mg-30 mcg (21)/75 mg (7) tablet 1 tab PO DAILY Qty: 84 4RF albuterol sulfate [Proventil HFA] 90 mcg/actuation HFA aerosol inhaler 2 puff inhalation BID PRN acetaminophen [Tylenol Extra Strength] 500 mg tablet 500 mg PO Q6H PRN citalopram 20 MG tablet 20 mg PO HS disulfiram 250 mg tablet 250 mg PO DAILY Qty: 14 0RF Rx Instructions: please do not take until you have abstained from alcohol for 12 hours Discharge Instructions Instructions: Heavy Periods ED Additional Instructions: Please call women's wellness first thing in the morning to schedule a follow-up call or appointment with Maral tomorrow Be sure to get plenty of rest. Eat regular meals and stay hydrated. Return to emergency care if you develop new episodes of dizziness/palpitation/shortness of breath, fevers associated with bleeding/abdominal pain, worsening abdominal pain, episodes of uncontrollable vomiting, sudden severe increase in bleeding, or if you are very worried and need to be rechecked again immediately Stand Alone Forms: Portal Information, Work Release Referrals: Becca DURAN,Maral [NURSE PRACTITIONER, Gynecology Medical]
[2025-07-18 17:25] VITALS: BP 123/82; PULSE 87; TEMP 37; O2SAT 100
== END 2025-07-18 17:32 | disposition home or self-care (01) ==
PROVIDERS: Physician Assistant; Emergency Provider Nurse Practitioner Family; PCP Nurse Practitioner Family
DX: N92.0 Excessive and frequent menstruation with regular cycle (principal)
CPT/HCPCS: 99283; 99284; 81025; 00123; 80053; 76830; 76856; 85025